=== PATIENT | female | born 1950 | race Caucasian/White ===

== ENCOUNTER 2017-05-20 09:59 | Day surgery (SDC) | payer MEDICARE, OTHER ==
[2017-05-20] MEDS ORDERED: LIDOCAINE 100 MG SYRINGE (11:44)
[2017-05-20] MEDS ORDERED: PROPOFOL 40 ML (11:44)
== END 2017-05-20 13:46 | disposition home or self-care (01) ==
LOC: GIL 09:59
DX: R19.4 Change in bowel habit (principal); D12.5 Benign neoplasm of sigmoid colon; K29.60 Other gastritis without bleeding; B96.81 Helicobacter pylori [H. pylori] as the cause of diseases classified elsewhere; K64.8 Other hemorrhoids; E78.5 Hyperlipidemia, unspecified; I10 Essential (primary) hypertension
CPT/HCPCS: 43239; 87081; 88305

== ENCOUNTER 2018-09-23 09:43 | Emergency (ER) | payer MEDICARE, OTHER | END 2018-09-23 11:28 | disposition home or self-care (01) | LOC: FTE 09:43 | DX: M79.671 Pain in right foot (principal); E11.9 Type 2 diabetes mellitus without complications; I10 Essential (primary) hypertension | CPT/HCPCS: 73610; 73610-RT; 73630; 99283-25 ==